=== PATIENT | female | born 1970 | race Caucasian/White ===

== ENCOUNTER 2017-07-19 13:09 | Emergency (ER) | payer OTHER ==
[2017-07-19] MEDS ORDERED: FAMOTIDINE 20 MG TABLET PO ONE (13:28)
[2017-07-19] MEDS ORDERED: DIPHENHYDRAMINE HCL 50 MG CAPSULE PO ONE (13:28)
--- NOTE | 2017-07-19 13:29 | ER Document Report ---
ED General - General Chief Complaint: Facial Swelling Stated Complaint: ALLERGIC REACTION Time Seen by Provider: 07/19/17 13:28 Mode of Arrival: Ambulatory Information source: Patient Notes: 46 yr old female presents with complaints of rash on her face after taking a dose of tolterodine. Pt notes she has had people ask her if she has SLE , and was recently tested. Pt notes the rash is very itchy, was given solumedrol by her pcp and sent into the ED for evaluation pt was recently also placed on amoxicillin for uri/sinusitis TRAVEL OUTSIDE OF THE [place] IN LAST 30 DAYS: No - HPI Onset: Just prior to arrival Onset/Duration: Sudden Quality of pain: No pain Severity: Mild Pain Level: Denies Associated symptoms: Other Exacerbated by: Other Relieved by: Denies Similar symptoms previously: No Recently seen / treated by doctor: Yes - Related Data Allergies/Adverse Reactions: Sulfa (Sulfonamide Antibiotics) Allergy (Verified 10/15/11 23:04) Past Medical History - Social History Smoking Status: Never Smoker Cigarette use (# per day): No Chew tobacco use (# tins/day): No Smoking Education Provided: No Family History: Reviewed & Not Pertinent Patient has suicidal ideation: No Patient has homicidal ideation: No - Past Medical History Cardiac Medical History: Denies: Hx Coronary Artery Disease, Hx Heart Attack, Hx Hypertension Pulmonary Medical History: Reports: Hx Asthma Denies: Hx Bronchitis, Hx COPD, Hx Pneumonia, Hx Tuberculosis Neurological Medical History: Denies: Hx Cerebrovascular Accident, Hx Seizures Renal/ Medical History: Denies: Hx Peritoneal Dialysis GI Medical History: Reports: Hx Gastroesophageal Reflux Disease, Hx Hiatal Hernia Musculoskeltal Medical History: Denies Hx Arthritis Past Surgical History: Reports: Hx Section, Hx Cholecystectomy, Hx Hysterectomy, Hx Tonsillectomy. Denies: Hx Pacemaker - Immunizations Hx Diphtheria, Pertussis, Tetanus Vaccination: No Review of Systems - Review of Systems Notes: REVIEW OF SYSTEMS: CONSTITUTIONAL : Denies fever, chills, or sweats. Denies recent illness. EENT: Denies eye, ear, throat, or mouth pain or symptoms. Denies nasal or sinus congestion or discharge. Denies throat, tongue, or mouth swelling or difficulty swallowing. CARDIOVASCULAR: Denies chest pain. Denies palpitations or racing or irregular heart beat. Denies ankle edema. RESPIRATORY: Denies cough, cold, or chest congestion. Denies shortness of breath, difficulty breathing, or wheezing. GASTROINTESTINAL: Denies abdominal pain or distention. Denies nausea, vomiting , or diarrhea. Denies blood in vomitus, stools, or per rectum. Denies black, tarry stools. Denies constipation. GENITOURINARY: Denies difficulty urinating, painful urination, burning, frequency, blood in urine, or discharge. FEMALE GENITOURINARY: Denies vaginal bleeding, heavy or abnormal periods, irregular periods. Denies vaginal discharge or odor. MUSCULOSKELETAL: Denies back or neck pain or stiffness. Denies joint pain or swelling. SKIN: Admits to facial rash HEMATOLOGIC : Denies easy bruising or bleeding. LYMPHATIC: Denies swollen, enlarged glands. NEUROLOGICAL: Denies confusion or altered mental status. Denies passing out or loss of consciousness. Denies dizziness or lightheadedness. Denies headache. Denies weakness or paralysis or loss of use of either side. Denies problems with gait or speech. Denies sensory loss, numbness, or tingling. Denies seizures. PSYCHIATRIC: Denies anxiety or stress. Denies depression, suicidal ideation, or homicidal ideation. ALL OTHER SYSTEMS REVIEWED AND NEGATIVE. PHYSICAL EXAMINATION: GENERAL: Well-appearing, well-nourished and in no acute distress. HEAD: Atraumatic, normocephalic. EYES: Pupils equal round and reactive to light, extraocular movements intact, conjunctiva are normal. ENT: Nares patent, oropharynx clear without exudates. Moist mucous membranes. NECK: Normal range of motion, supple without lymphadenopathy LUNGS: Breath sounds clear to auscultation bilaterally and equal. No wheezes rales or rhonchi. HEART: Regular rate and rhythm without murmurs ABDOMEN: Soft, nontender, nondistended abdomen. No guarding, no rebound. No masses appreciated. Female : deferred Musculoskeletal: Normal range of motion, no pitting or edema. No cyanosis. NEUROLOGICAL: Cranial nerves grossly intact. Normal speech, normal gait. Normal sensory, motor exams PSYCH: Normal mood, normal affect. SKIN: Rash of face and cheeks, itching Dictation was performed using [employer] voice recognition software Physical Exam - Vital signs Vitals: Temp Pulse Resp BP Pulse Ox 98.7 F 90 18 142/94 H 98 07/19/17 13:11 07/19/17 13:11 07/19/17 13:11 07/19/17 13:11 07/19/17 13:11 Course - Re-evaluation Re-evalutation: 07/19/17 13:32 Tolterodine and Skin rash - from FDA reports Summary Skin rash is found among people who take Tolterodine, especially for people who are female, 60+ old , have been taking the drug for < 1 month, also take medication Celebrex, and have High blood pressure. This review analyzes which people have Skin rash with Tolterodine. It is created by [employer] based on reports of 119 people who have side effects when taking Tolterodine from FDA , and is updated regularly. 07/19/17 14:33 Patient x-ray noted no significant abnormality, patient will be treated for allergic reactions otherwise stable for discharge After performing a Medical Screening Examination, I estimate there is LOW risk for AIRWAY COMPROMISE, ANAPHYLAXIS, CELLULITIS, EPIGLOTTIS, or NECROTIZING FASCIITIS, thus I consider the discharge disposition reasonable. Also, there is no evidence or peritonitis, sepsis, or toxicity. I have reevaluated this patient multiple times and no significant life threatening changes are noted. The patient and I have discussed the diagnosis and risks, and we agree with discharging home with close follow-up with the understanding that symptoms and presentations can change. We also discussed returning to the Emergency Department immediately if new or worsening symptoms occur. We have discussed the symptoms which are most concerning (e.g., difficulty breathing or swallowing , fever, changing or worsening pain) that necessitate immediate return. - Vital Signs Vital signs: Temp Pulse Resp BP Pulse Ox 98.7 F 90 18 142/94 H 98 07/19/17 13:11 07/19/17 13:11 07/19/17 13:11 07/19/17 13:11 07/19/17 13:11 - Diagnostic Test Radiology reviewed: Image reviewed, Reports reviewed - no acute abnormality Discharge - Discharge Clinical Impression: Facial rash Acute allergic reaction Qualifiers: Encounter type: initial encounter Qualified Code(s): T78.40XA - Allergy, unspecified, initial encounter URI (upper respiratory infection) Qualifiers: URI type: unspecified URI Qualified Code(s): J06.9 - Acute upper respiratory infection, unspecified Condition: Stable Disposition: HOME, SELF-CARE Instructions: Upper Respiratory Illness ([facility]), Acute Allergic Reaction ([facility]) Additional Instructions: Please stop taking your medication, return immediately if there are any other concerns Prescriptions: Diphenhydramine HCl [Benadryl 50 mg Capsule] 1 cap PO Q6 PRN #20 capsule PRN Reason: Famotidine [Pepcid 20 mg Tablet] 20 mg PO DAILY #5 tablet Prednisone [Deltasone 20 mg Tablet] 3 tab PO DAILY 5 Days tablet
--- NOTE | 2017-07-19 14:12 | RADIOLOGY REPORT (SQ) ---
EXAM DESCRIPTION: CHEST PA/LAT COMPLETED DATE/TIME: 07/19/2017 1:58 pm REASON FOR STUDY: cough COMPARISON: 10/23/2011 EXAM PARAMETERS: NUMBER OF VIEWS: two views TECHNIQUE: Digital Frontal and Lateral radiographic views of the chest acquired. RADIATION DOSE: NA LIMITATIONS: none FINDINGS: LUNGS AND PLEURA: No opacities, masses or pneumothorax. No pleural effusion. MEDIASTINUM AND HILAR STRUCTURES: No masses or contour abnormalities. HEART AND VASCULAR STRUCTURES: Heart normal size. No evidence for failure. BONES: No acute findings. HARDWARE: None in the chest. OTHER: No other significant finding. IMPRESSION: NO SIGNIFICANT RADIOGRAPHIC FINDING IN THE CHEST. TECHNICAL DOCUMENTATION: JOB ID: [id number] [employer]- All Rights Reserved
[2017-07-19 14:42] VITALS: BP 144/87
--- NOTE | 2017-07-19 14:54 | ER Document Report ---
ED Medical Screen (RME) - General Chief Complaint: Facial Swelling Stated Complaint: ALLERGIC REACTION Time Seen by Provider: 07/19/17 13:28 Mode of Arrival: Ambulatory Information source: Patient Notes: Patient presents with allergic reaction to face TRAVEL OUTSIDE OF THE [place] IN LAST 30 DAYS: No - Related Data Allergies/Adverse Reactions: Sulfa (Sulfonamide Antibiotics) Allergy (Verified 10/15/11 23:04) Past Medical History - Social History Cigarette use (# per day): No Chew tobacco use (# tins/day): No - Past Medical History Cardiac Medical History: Denies: Hx Coronary Artery Disease, Hx Heart Attack, Hx Hypertension Pulmonary Medical History: Reports: Hx Asthma Denies: Hx Bronchitis, Hx COPD, Hx Pneumonia, Hx Tuberculosis Neurological Medical History: Denies: Hx Cerebrovascular Accident, Hx Seizures Renal/ Medical History: Denies: Hx Peritoneal Dialysis GI Medical History: Reports: Hx Gastroesophageal Reflux Disease, Hx Hiatal Hernia Musculoskeltal Medical History: Denies Hx Arthritis Past Surgical History: Reports: Hx Section, Hx Cholecystectomy, Hx Hysterectomy, Hx Tonsillectomy. Denies: Hx Pacemaker - Immunizations Hx Diphtheria, Pertussis, Tetanus Vaccination: No Physical Exam - Vital signs Vitals: Temp Pulse Resp BP Pulse Ox 98.7 F 90 18 142/94 H 98 07/19/17 13:11 07/19/17 13:11 07/19/17 13:11 07/19/17 13:11 07/19/17 13:11 Course - Vital Signs Vital signs: Temp Pulse Resp BP Pulse Ox 98.7 F 87 20 144/87 H 97 07/19/17 13:11 07/19/17 14:38 07/19/17 14:38 07/19/17 14:38 07/19/17 14:38 Doctor's Discharge - Discharge Clinical Impression: Facial rash Acute allergic reaction Qualifiers: Encounter type: initial encounter Qualified Code(s): T78.40XA - Allergy, unspecified, initial encounter URI (upper respiratory infection) Qualifiers: URI type: unspecified URI Qualified Code(s): J06.9 - Acute upper respiratory infection, unspecified Condition: Stable Disposition: HOME, SELF-CARE Instructions: Acute Allergic Reaction ([facility]), Upper Respiratory Illness ([facility]) Additional Instructions: Please stop taking your medication, return immediately if there are any other concerns Prescriptions: Diphenhydramine HCl [Benadryl 50 mg Capsule] 1 cap PO Q6 PRN #20 capsule PRN Reason: Famotidine [Pepcid 20 mg Tablet] 20 mg PO DAILY #5 tablet Prednisone [Deltasone 20 mg Tablet] 3 tab PO DAILY 5 Days tablet
== END 2017-07-19 14:40 | disposition home or self-care (01) ==
LOC: ER 13:09
DX: J06.9 Acute upper respiratory infection, unspecified (principal); T78.40XA Allergy, unspecified, initial encounter; R21 Rash and other nonspecific skin eruption; R22.0 Localized swelling, mass and lump, head
CPT/HCPCS: 71020; 99283

== ENCOUNTER 2017-11-07 12:12 | Emergency (ER) | payer OTHER ==
--- NOTE | 2017-11-07 12:55 | ER Document Report ---
ED ENT - General Chief Complaint: Sore Throat Stated Complaint: POSSIBLE ALLERGIC REACTION Time Seen by Provider: 11/07/17 12:52 Mode of Arrival: Ambulatory Information source: Patient Notes: Patient states she woke up this morning and had a drink and suddenly felt pain in the back of her throat. She states his pain has gotten worse as he is gone throughout the day. She states it is sharp. It is worse with swallowing and better when she does not swallow. There is no radiation of symptoms. They are intermittent. She denies any other significant symptoms. She states she does not believe she ingested anything she might be allergic to. She has had some sinus congestion lately. TRAVEL OUTSIDE OF THE [place] IN LAST 30 DAYS: No - Related Data Allergies/Adverse Reactions: Sulfa (Sulfonamide Antibiotics) Allergy (Verified 10/15/11 23:04) Past Medical History - General Information source: Patient - Social History Smoking Status: Never Smoker Chew tobacco use (# tins/day): No Frequency of alcohol use: None Drug Abuse: None Family History: Reviewed & Not Pertinent Patient has suicidal ideation: No Patient has homicidal ideation: No - Past Medical History Cardiac Medical History: Denies: Hx Coronary Artery Disease, Hx Heart Attack, Hx Hypertension Pulmonary Medical History: Reports: Hx Asthma Denies: Hx Bronchitis, Hx COPD, Hx Pneumonia, Hx Tuberculosis Neurological Medical History: Denies: Hx Cerebrovascular Accident, Hx Seizures Renal/ Medical History: Denies: Hx Peritoneal Dialysis GI Medical History: Reports: Hx Gastroesophageal Reflux Disease, Hx Hiatal Hernia Musculoskeltal Medical History: Denies Hx Arthritis Past Surgical History: Reports: Hx Section, Hx Cholecystectomy, Hx Hysterectomy, Hx Tonsillectomy. Denies: Hx Pacemaker - Immunizations Hx Diphtheria, Pertussis, Tetanus Vaccination: No Review of Systems - Review of Systems Constitutional: denies: Chills, Fever Cardiovascular: denies: Chest pain, Palpitations Gastrointestinal: denies: Abdominal pain, Diarrhea, Vomiting -: Yes All other systems reviewed and negative Physical Exam - Vital signs Vitals: Temp Pulse Resp BP Pulse Ox 98.8 F 68 18 144/89 H 98 11/07/17 12:20 11/07/17 12:20 11/07/17 12:20 11/07/17 12:20 11/07/17 12:20 Interpretation: Normal - General General appearance: Appears well, Alert - HEENT Head: Normocephalic, Atraumatic Eyes: Normal Pupils: PERRL Nasal: Normal Mouth/Lips: Normal Mucous membranes: Moist Pharynx: Erythema, Other - On oral exam I see no evidence of an allergic reaction. There is no buccal mucosal swelling, no tongue swelling, no swelling of the floor the mouth, no posterior pharyngeal or uvular swelling. I also see no lesions.. No: Exudate, Uvular edema, Potential airway comprom. Neck: Normal - Respiratory Respiratory status: No respiratory distress Chest status: Nontender Breath sounds: Normal Chest palpation: Normal - Cardiovascular Rhythm: Regular Heart sounds: Normal auscultation Murmur: No - Abdominal Inspection: Normal Distension: No distension Bowel sounds: Normal Tenderness: Nontender Organomegaly: No organomegaly - Back Back: Normal, Nontender - Extremities General upper extremity: Normal inspection, Nontender, Normal color, Normal ROM , Normal temperature General lower extremity: Normal inspection, Nontender, Normal color, Normal ROM , Normal temperature, Normal weight bearing. No: Valentina's sign - Neurological Neuro grossly intact: Yes Cognition: Normal Orientation: AAOx4 Nimesh Coma Scale Eye Opening: Spontaneous Nimesh Coma Scale Verbal: Oriented [place] Coma Scale Motor: Obeys Commands Nimesh Coma Scale Total: 15 Speech: Normal Motor strength normal: LUE, RUE, LLE, RLE Sensory: Normal - Psychological Associated symptoms: Normal affect, Normal mood - Skin Skin Temperature: Warm Skin Moisture: Dry Skin Color: Normal Course - Vital Signs Vital signs: Temp Pulse Resp BP Pulse Ox 98.8 F 68 18 144/89 H 98 11/07/17 12:20 11/07/17 12:20 11/07/17 12:20 11/07/17 12:20 11/07/17 12:20 - Diagnostic Test Radiology reviewed: Image reviewed, Reports reviewed - Patient soft tissue neck x-ray is unremarkable. Discharge - Discharge Clinical Impression: Pharyngitis Qualifiers: Pharyngitis/tonsillitis etiology: other specified organisms Qualified Code(s): J02.8 - Acute pharyngitis due to other specified organisms Condition: Stable Disposition: HOME, SELF-CARE Instructions: Sore Throat ([facility]) Additional Instructions: Please call your family physician as soon as possible to arrange for follow-up. Forms: Return to Work
--- NOTE | 2017-11-07 13:29 | RADIOLOGY REPORT (SQ) ---
EXAM DESCRIPTION: SOFT TISSUE NECK COMPLETED DATE/TIME: 11/07/2017 1:19 pm REASON FOR STUDY: painful swallowing COMPARISON: None. NUMBER OF VIEWS: Two views. TECHNIQUE: AP and lateral radiographic image of the soft tissues of the neck. LIMITATIONS: None. FINDINGS: EPIGLOTTIS: Normal. Contour normal. Aryepiglottic folds normal. PREVERTEBRAL SOFT TISSUES: Normal. No soft tissue swelling. SUBGLOTTIC AREA: Normal. No narrowing. RETROPHARYNGEAL SPACE: Normal. No soft tissue masses. BONES: No significant findings. LUNG APICES: Normal. OTHER: No radiopaque foreign body. No other significant finding. IMPRESSION: NEGATIVE STUDY OF THE SOFT TISSUES OF THE NECK. TECHNICAL DOCUMENTATION: JOB ID: [id number] [employer]- All Rights Reserved
[2017-11-07] MEDS ORDERED: MAG HYDROX/AL HYDROX/SIMETH SUSP 30 ML UDCUP PO PRN (13:39)
[2017-11-07 14:01] VITALS: BP 151/88
== END 2017-11-07 13:57 | disposition home or self-care (01) ==
LOC: ER 12:12
DX: J02.9 Acute pharyngitis, unspecified (principal); R09.81 Nasal congestion; Z88.2 Allergy status to sulfonamides; Z90.89 Acquired absence of other organs
CPT/HCPCS: 70360; 99283

== ENCOUNTER 2019-10-02 10:35 | Inpatient (IN) | payer OTHER ==
[2019-10-02] MEDS ORDERED: FENTANYL CITRATE INJ/PF 100 MCG/2 ML AMPUL IV ONE ×2 (10:55→13:30)
[2019-10-02] MEDS ORDERED: ONDANSETRON HCL INJ/PF 4 MG/2 ML SDV IV ONE (10:55)
--- NOTE | 2019-10-02 12:07 | RADIOLOGY REPORT (SQ) ---
EXAM DESCRIPTION: ANKLE RIGHT COMPLETE COMPLETED DATE/TIME: 10/02/2019 11:55 am REASON FOR STUDY: +deformity, bone tenderness COMPARISON: None. NUMBER OF VIEWS: Three views. TECHNIQUE: AP, lateral, and oblique radiographic images acquired of the right ankle. LIMITATIONS: None. FINDINGS: MINERALIZATION: Normal. BONES: Comminuted fracture of the distal fibula through the syndesmosis. Fracture of the posterior m alleolus with posterior dislocation. talar dome appears intact. JOINTS: See above. SOFT TISSUES: No foreign body. OTHER: No other significant finding. IMPRESSION: Fracture dislocation of the ankle. TECHNICAL DOCUMENTATION: JOB ID: [id number] [employer].- All Rights Reserved Reading location - IP/workstation name: [email or web address]
--- NOTE | 2019-10-02 12:38 | ER Document Report ---
Entered by PREMA WALSH SCRIBE 10/02/19 1054 Acting as scribe for:SETH HURT MD ED Extremity Problem, Lower - General Chief Complaint: Ankle Injury Stated Complaint: RIGHT ANKLE INJURY Time Seen by Provider: 10/02/19 10:49 Primary Care Provider: RODRIGO MAYER MD [NO LOCAL MD] - Follow up as needed Mode of Arrival: Medic Information source: Patient Notes: 49-year-old female who presents to the emergency department today with complaints of right ankle pain with an associated deformity. Patient states she works at [employer] and she "decided to break out her roller states" despite not having skated in "decades". Patient states that they "strongly advised against it but she wanted to try to anyways". 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 Patient has good sensation and pulses distally. TRAVEL OUTSIDE OF THE [place] IN LAST 30 DAYS: No - HPI Patient complains to provider of: Injury, Pain, Swelling Location: Ankle - right Occurred: Just prior to arrival Where: Work - [employer] - Related Data Allergies/Adverse Reactions: Sulfa (Sulfonamide Antibiotics) Allergy (Verified 10/15/11 23:04) Home Medications: pantoprazole, peroxetine, Past Medical History - General Information source: Patient - Social History Smoking Status: Never Smoker Cigarette use (# per day): No Chew tobacco use (# tins/day): No Frequency of alcohol use: Occasional Drug Abuse: None Occupation: [employer], [employer] Lives with: Family Family History: Reviewed & Not Pertinent Patient has suicidal ideation: No Patient has homicidal ideation: No Pulmonary Medical History: Reports: Hx Asthma GI Medical History: Reports: Hx Gastroesophageal Reflux Disease, Hx Hiatal Hernia Past Surgical History: Reports: Hx Section, Hx Cholecystectomy, Hx Hysterectomy, Hx Tonsillectomy - Immunizations Hx Diphtheria, Pertussis, Tetanus Vaccination: No Review of Systems - Review of Systems Constitutional: No symptoms reported EENT: No symptoms reported Cardiovascular: No symptoms reported Respiratory: No symptoms reported Gastrointestinal: No symptoms reported Genitourinary: No symptoms reported Female Genitourinary: No symptoms reported Musculoskeletal: See HPI, Joint pain - right ankle, Deformity - right ankle Skin: No symptoms reported Hematologic/Lymphatic: No symptoms reported Neurological/Psychological: No symptoms reported -: Yes All other systems reviewed and negative Physical Exam - Vital signs Vitals: Temp 97.4 F 10/02/19 10:43 - Notes Notes: Physical Exam: General: Alert, appears uncomfortable. HEENT: Normocephalic. Atraumatic. PERRL. Extraocular movements intact. Oropharynx clear. Neck: Supple. Non-tender. Respiratory: No respiratory distress. Clear and equal breath sounds bilaterally. Cardiovascular: Regular rate and rhythm. Abdominal: Obese. Non-tender. No distension. Normal Bowel Sounds. Back: No gross abnormalities. Extremities: Moves all four extremities. Upper extremities: Normal inspection. Normal ROM. Lower extremities: Obvious deformity with associated tenderness to palpation of the right ankle. 2+ pulses distally. Sensation intact distally. Brisk capillary refill. Neurological: Normal cognition. AAOx4. Normal speech. Psychological: Normal affect. Normal Mood. Skin: Warm. Dry. Normal color. Course - Vital Signs Vital signs: Temp Pulse Resp BP Pulse Ox 97.4 F 17 120/72 100 10/02/19 10:43 10/02/19 14:52 10/02/19 14:52 10/02/19 14:52 - Diagnostic Test Radiology reviewed: Image reviewed, Reports reviewed - Right ankle shows comminuted fractures of the lateral and posterior malleoli with posterior displacement of the talar dome - Consults Dr. Barahona Consulted provider: will come to ER Procedures - Joint Reduction/Fracture Care Right Ankle Consent obtained: Yes Conscious sedation: No Pre-procedure NV exam: Yes Fracture: Closed Post-procedure NV exam: Yes Post-reduction x-ray: Joint not reduced - Joint is partially reduced. Reduction attempts: 1 Complications: No Notes: 10/02/19 15:[address] Barahona. He plans to take the patient to the operating room tomorrow morning. He will see her on the floor and decide if he wants to attempt to further reduce the ankle. Discharge - Discharge Clinical Impression: Closed fracture dislocation of right ankle Qualifiers: Encounter type: initial encounter Qualified Code(s): S82.891A - Other fracture of right lower leg, initial encounter for closed fracture Condition: Stable Disposition: ADMITTED INPATIENT Admitting Provider: Dr. Barahona Unit Admitted: Surgical Floor Referrals: RODRIGO MAYER MD [NO LOCAL MD] - Follow up as needed Scribe Attestation: 10/02/19 13:48 I personally performed the services described in the documentation, reviewed and edited the documentation which was dictated to the scribe in my presence, and it accurately records my words and actions. I personally performed the services described in the documentation, reviewed and edited the documentation which was dictated to the scribe in my presence, and it accurately records my words and actions.
[2019-10-02] MEDS ORDERED: ONDANSETRON 4 MG TAB.RAPDIS PO ONE (13:10)
[2019-10-02] MEDS ORDERED: FENTANYL CITRATE INJ/PF 250 MCG/5 ML AMPULE IV ONE (13:13)
--- NOTE | 2019-10-02 15:25 | RADIOLOGY REPORT (SQ) ---
EXAM DESCRIPTION: ANKLE RIGHT AP/LATERAL COMPLETED DATE/TIME: 10/02/2019 2:50 pm REASON FOR STUDY: Postreduction COMPARISON: Earlier same day. NUMBER OF VIEWS: Two views. TECHNIQUE: AP and lateral radiographic images acquired of the right ankle. LIMITATIONS: None. FINDINGS: Improved alignment of the distal fibular fracture status post external cast placement. Im proved alignment of the ankle dislocation. IMPRESSION: Successful closed reduction. TECHNICAL DOCUMENTATION: JOB ID: [id number] [employer]- All Rights Reserved Reading location - IP/workstation name: [email or web address]
[2019-10-02] MEDS ORDERED: MORPHINE SULFATE 10 MG/ML INJ IV PRN (19:23)
[2019-10-02 19:39] LABS: ABSOLUTE EOSINOPHILS # (AUTO) 0.1 10^3/uL (0.0-0.6); ABSOLUTE LYMPHOCYTES (AUTO) 1.6 10^3/uL (0.5-4.7); ABSOLUTE MONOCYTES (AUTO) 0.4 10^3/uL (0.1-1.4); ABSOLUTE NEUT (AUTO) 2.7 10^3/uL (1.7-8.2); BASOPHILS % (AUTO) 0.8 % (0-2); EOSINOPHILS % (AUTO) 2.4 % (0-6); HEMATOCRIT 43.4 % (36.0-47.0); HEMOGLOBIN 14.5 g/dL (12.0-15.5); LYMPHOCYTES % (AUTO) 33.5 % (13-45); MEAN CORPUSCULAR HEMOGLOBIN 29.9 pg (27.0-33.4); MEAN CORPUSCULAR HGB CONC 33.4 g/dL (32.0-36.0); MEAN CORPUSCULAR VOLUME 89 fl (80-97); MONOCYTES % (AUTO) 7.4 % (3-13); PLATELET COUNT 153 10^3/uL (150-450); RED BLOOD COUNT 4.85 10^6/uL (3.72-5.28); RED CELL DISTRIBUTION WIDTH 12.9 % (11.5-14.0); SEGMENTED NEUTROPHILS % (AUTO) 55.9 % (42-78); TOTAL CELLS COUNTED % (AUTO) 100 %; WHITE BLOOD COUNT 4.8 10^3/uL (4.0-10.5)
[2019-10-02] MEDS ORDERED: LIDOCAINE 1% INJ (10 MG/ML) 10 ML MDV INJ ONE (19:55)
[2019-10-02] MEDS: ACETAMINOPHEN 325 MG TABLET PO SCH (20:05)
[2019-10-02 20:10] LABS: ANION GAP 7 (5-19); BLOOD UREA NITROGEN 12 mg/dL (7-20); CALCIUM 9.5 mg/dL (8.4-10.2); CARBON DIOXIDE 27 mmol/L (22-30); CHLORIDE 107 mmol/L (98-107); GLUCOSE 101 mg/dL (75-110); POTASSIUM 3.9 mmol/L (3.6-5.0)
--- NOTE | 2019-10-02 20:37 | PDOC H&P ---
History of Present Illness Admission Date/PCP: 10/02/19 16:00 [facility] History of Present Illness: SAIRA LEWIS is a 49 year old female Who works at [employer], and was attempting to roller skate for her job in the back parking lot when she fell and rolled her ankle. Subsequently she could not get up and she had an ankle deformity. She was brought to the hospital and found to have a posterior malleolus fracture dislocation of the tibiotalar joint with a associated lateral malleolus fracture. And significant widening of the medial clear space. The emergency department attempted a reduction but were unable to obtain stable reduction in a splint. Post reduction x-rays revealed a consistent dislocation posteriorly. I presented for re-reduction and consideration of operative planning. Patient denies any other injury associated with her fall she denies associated limb pain head injury or loss of consciousness. There is no distal paresthesias her pain is located to the ankle and the skin is intact. Pain is a 5 out of 10 at rest worse with motion improved with pain medication. Nonradiating. Past Medical History Past Medical History: Past medical history includes anxiety depression and asthma Cardiac Medical History: Denies: Coronary Artery Disease, Myocardial Infarction, Hypertension Pulmonary Medical History: Reports: Asthma Denies: Bronchitis, Chronic Obstructive Pulmonary Disease (COPD), Pneumonia, Tuberculosis Neurological Medical History: Denies: Seizures GI Medical History: Reports: Gastroesophageal Reflux Disease, Hiatal Hernia Musculoskeltal Medical History: Denies: Arthritis Hematology: Denies: Anemia Past Surgical History Past Surgical History: Reports: Section, Cholecystectomy, Hysterectomy, Tonsillectomy Denies: Pacemaker Social History Lives with: Family Smoking Status: Never Smoker Electronic Cigarette use?: No Hx Recreational Drug Use: No Hx Prescription Drug Abuse: No Family History Family History: Reviewed & Not Pertinent Parental Family History Reviewed: Yes Children Family History Reviewed: No Sibling(s) Family History Reviewed.: No Medication/Allergy Home Medications: Multivitamin [Tab-A-Turner (Multiple Vitamin) Tablet] 1 tab PO DAILY 10/02/19 Pantoprazole Sodium [Protonix [address] Tablet] 40 mg PO Q6AM 10/02/19 Paroxetine HCl [Paxil 20 mg Tablet] 10 mg PO DAILY 10/02/19 Allergies/Adverse Reactions: Sulfa (Sulfonamide Antibiotics) Allergy (Verified 10/15/11 23:04) Physical Exam Vital Signs: Temp Pulse Resp BP Pulse Ox 97.4 F 14 125/71 100 10/02/19 10:43 10/02/19 20:17 10/02/19 20:17 10/02/19 20:17 Intake & Output 10/01/19 10/02/19 10/03/19 06:59 06:59 06:59 Intake Total 360 Balance 360 Weight 124.738 kg Physical Exam: General appearance: PRESENT: no acute distress, cooperative, well-nourished, Morbid obesity Head exam: PRESENT: atraumatic, normocephalic Eye exam: PRESENT: EOMI Ear exam: PRESENT: normal external ear exam Mouth exam: PRESENT: neck supple Neck exam: ABSENT: tracheal deviation Respiratory exam: PRESENT: symmetrical, unlabored. ABSENT: accessory muscle use, wheezes Pulses: PRESENT: normal radial pulses, normal dorsalis pedis pul Vascular exam: PRESENT: normal capillary refill GI/Abdominal exam: ABSENT: distended, firm Extremities exam: PRESENT: full ROM of bilateral shoulders, elbows wrists, knees, hips and ankles without pain Musculoskeletal exam: PRESENT: full ROM, normal inspection Neurological exam: PRESENT: alert, awake, oriented to person, oriented to place, oriented to time Psychiatric exam: PRESENT: appropriate affect. ABSENT: agitated Focused psych exam: ABSENT: catatonic Skin exam: PRESENT: intact. ABSENT: dry All as above aside from that noted in the HPI and the following: Right lower extremity with obvious deformity external rotation of the ankle and posterior translation. Skin is intact without any signs of skin tenting. Distal sensation is grossly intact there is no paresthesia. Motor function to EHL FHL and EDB is present. Compartments are soft. Pulses are 2+. Results Laboratory Results: 10/02/19 11:03 10/02/19 11:03 10/02/19 10/02/19 11:03 11:03 WBC 4.8 RBC 4.85 Hgb 14.5 Hct 43.4 MCV 89 MCH 29.9 MCHC 33.4 RDW 12.9 Plt Count 153 Seg Neutrophils % 55.9 Sodium 141.1 Potassium 3.9 Chloride 107 Carbon Dioxide 27 Anion Gap 7 BUN 12 Creatinine 0.77 Est GFR ( Amer) > 60 Glucose 101 Calcium 9.5 Impressions: Ankle X-Ray 10/02/19 14:08 IMPRESSION: Successful closed reduction. Assessment & Plan - Diagnosis (1) Closed fracture dislocation of right ankle Qualifiers: Encounter type: initial encounter Qualified Code(s): S82.891A - Other fracture of right lower leg, initial encounter for closed fracture Plan: After discussing risks and benefits the patient underwent a second closed reduction in the emergency department under a local fracture hematoma block. -We will plan for operative fixation tomorrow. -Medical consult pending. -N.p.o. at midnight. -Nonweightbearing right lower extremity. -We will place her on aspirin postoperatively for DVT prophylaxis until that time hold all chemical anticoagulation. -Postreduction x-rays pending -We will order CT for further evaluation and operative management -Ancef 3 g to be given preoperative -Pain control multimodal
--- NOTE | 2019-10-02 20:40 | Operative Report ---
Operative Report DATE OF SURGERY: 10/02/19 PREOPERATIVE DIAGNOSIS: Right trimalleolar equivalent ankle fracture dislocation POSTOPERATIVE DIAGNOSIS: Right trimalleolar equivalent ankle fracture dislocation OPERATION: Closed reduction right trimalleolar ankle fracture SURGEON: MARINA MCKEON JR ANESTHESIA: Local COMPLICATIONS: none PROCEDURE: I discussed risks and benefits with the patient including all alternative treatments. After all questions were answered and all risks and benefits explained the patient provided verbal consent for closed reduction under local anesthesia. The site was clean with alcohol wipes and 10 cc of 1% lidocaine were given to the hematoma. After adequate anesthesia reduction maneuver was performed and a subsequent splint was placed. The patient tolerated the procedure well. We will plan for operative fixation tomorrow.
--- NOTE | 2019-10-02 21:33 | RADIOLOGY REPORT (SQ) ---
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 COMPARISON: Radiographs from earlier the same day. TECHNIQUE: CT scan of the right ankle without IV contrast. This exam was performed according to our departmental dose-optimization program, which includes automated exposure control, adjustment of the mA and/or kV according to patient size and/or use of iterative reconstruction technique. FINDINGS: There are mildly displaced and comminuted fractures of the lateral malleolus and posterior malleolus. Small fracture fragments are seen just below the medial malleolus. There is medial tibiotalar subluxation with disruption of the ankle mortise. The talar dome is intact. The subtalar joints are preserved. Diffuse soft tissue swelling of the ankle. No radiopaque foreign body. The medial flexor tendons, into close contact with the fracture fragments without evidence of entrapment. IMPRESSION: 1. Mildly displaced and comminuted fractures of the lateral and posterior malleoli. 2. Ankle mortise disruption with medial tibiotalar subluxation. 3. Tiny ossific fragments in the region of the deltoid ligament.
[2019-10-02] MEDS: OXYCODONE-ACETAMINOPHEN 5-325 MG TABLET PO PRN (22:23)
[2019-10-02] MEDS: ZOLPIDEM TARTRATE 5 MG TABLET PO SCH (22:23)
[2019-10-03] MEDS: ACETAMINOPHEN 325 MG TABLET PO SCH ×3 (05:33→21:53)
[2019-10-03] MEDS: PANTOPRAZOLE SODIUM 40 MG TABLET.DR PO SCH (05:34)
[2019-10-03] MEDS ORDERED: FENTANYL CITRATE INJ/PF 100 MCG/2 ML AMPUL ONE (08:42)
[2019-10-03] MEDS ORDERED: ONDANSETRON HCL INJ/PF 4 MG/2 ML SDV ONE (08:43)
[2019-10-03] MEDS ORDERED: DEXAMETHASONE SOD PHOSPHATE INJ 4 MG/1 ML VIAL ONE (08:43)
[2019-10-03] MEDS ORDERED: PROPOFOL INJ 200 MG/20 ML VIAL IV ONE (08:43)
[2019-10-03] MEDS ORDERED: MIDAZOLAM 2 MG/2 ML INJ ONE (08:43)
[2019-10-03] MEDS ORDERED: MORPHINE SULFATE 10 MG/ML INJ ONE (08:43)
[2019-10-03] MEDS ORDERED: EPINEPHRINE INJ/PF 1 MG/1 ML AMPULE ONE (09:19)
[2019-10-03] MEDS ORDERED: CEFAZOLIN INJ 1 GM VIAL ONE (09:19)
[2019-10-03] MEDS: BUPIVACAINE HCL 0.5 % INJ/PF 30 ML SDV ONE ×2 (10:16→11:55)
[2019-10-03] MEDS: LIDOCAINE 1% INJ-PF (10 MG/ML) 30 ML SDV ONE ×2 (10:16→11:55)
[2019-10-03] MEDS ORDERED: MORPHINE SULFATE 10 MG/ML INJ IV PRN (10:31)
[2019-10-03] MEDS ORDERED: PROMETHAZINE HCL INJ 25 MG/1 ML VIAL IV PRN ×2 (10:31)
[2019-10-03] MEDS ORDERED: FENTANYL CITRATE INJ/PF 100 MCG/2 ML AMPUL IV PRN ×3 (10:31)
[2019-10-03] MEDS ORDERED: DIPHENHYDRAMINE HCL 50 MG/ML VIAL IV PRN (10:31)
--- NOTE | 2019-10-03 13:01 | RADIOLOGY REPORT (SQ) ---
EXAM DESCRIPTION: ANKLE RIGHT COMPLETE COMPLETED DATE/TIME: 10/03/2019 12:50 pm REASON FOR STUDY: Post op COMPARISON: 10/02/2019 NUMBER OF VIEWS: Three views. TECHNIQUE: AP, lateral, and oblique radiographic images acquired of the right ankle. LIMITATIONS: None. FINDINGS: Postsurgical changes are present. There has been internal fixation of the distal fibula a nd distal tibia. Fiberglass cast is in place. Good anatomic alignment. IMPRESSION: Satisfactory postoperative right ankle as described. TECHNICAL DOCUMENTATION: JOB ID: [id number] [employer]- All Rights Reserved Reading location - IP/workstation name: [email or web address]
--- NOTE | 2019-10-03 13:45 | Operative Report ---
Operative Report DATE OF SURGERY: 10/03/19 PREOPERATIVE DIAGNOSIS: Right ankle trimalleolar fracture equivalent POSTOPERATIVE DIAGNOSIS: Right ankle trimalleolar fracture equivalent OPERATION: Right ankle open reduction internal fixation SURGEON: MARINA MCKEON JR ANESTHESIA: Spinal COMPLICATIONS: none ESTIMATED BLOOD LOSS: 20 cc PROCEDURE: The patient is a 49-year-old female who initially presented to the emergency after trying to skate at her job at [employer]. An attempt was made at reduction by the ER which was not adequate and subsequently, I attempted reduction a second time. She was found to be grossly unstable. Subsequent XR found her to be subluxed in her splint even after the second attempt. After discussing risks benefits and treatment alternatives and answering all questions the patient provided operative consent for her left ankle. She was brought to the operating suite and placed under spinal anesthesia. Her splint was removed and skin was confirmed to be intact and was healthy for operative treatment. She was placed in the lateral position. She was prepped and draped in standard sterile fashion. She was provided with 2 g of Ancef pre- operatively. After an appropriate timeout the limb was exsanguinated with Esmarch and tourniquet was inflated followed by a postero-lateral incision to the lateral malleolus. We utilized a window about the peroneal tendons to access the posterior malleolus. Through direct reduction techniques and with the assistance of richard, we placed reduction screws and k-wires and then applied a small anti-glide plate with a combination of locking and nonlocking screws. After this we turned our attention to the lateral malleolus. We were able to reduce and hold with a lobster bone clamp and then place a lag screw by technique. We then applied a plate to the posterior aspect and placed a neutralization plate with screws that had excellent purchase. Following this, a cotton test was performed and found the syndesmosis to be stable. However, the deltoid ligament was grossly unstable and she was still able to sublux medially. The decision was made to close and proceed with immobilization to allow the medial soft tissue to heal. Then final x-rays were taken. The wounds were copiously irrigated with sterile saline solution. Following this a interrupted 2-0 Vicryl was used subcutaneously followed by a running mattress type II 0 nylon in the skin. Xeroform was placed over the wounds followed by 4 x 4's soft roll splint and Brian wrap. The patient tolerated the procedure well and was transferred to the PACU in stable condition.
--- NOTE | 2019-10-03 14:24 | RADIOLOGY REPORT (SQ) ---
EXAM DESCRIPTION: ANKLE RIGHT AP/LATERAL; NO CHG FLUORO COMPLETED DATE/TIME: 10/03/2019 2:13 pm REASON FOR STUDY: ORIF RIGHT ANKLE ASST WITH FLUORO IN OR COMPARISON: 10/02/2019 FLUOROSCOPY TIME: 0.4 minutes Spot images saved to PACS. TECHNIQUE: Intra-operative images acquired during surgical procedure to evaluate progress. NUMBER OF IMAGES: 4 LIMITATIONS: None. FINDINGS: Fluoroscopy was provided for intraoperative procedure. Please refer to the operative repo rt for further discussion. IMPRESSION: IMAGE(S) OBTAINED DURING PROCEDURE. COMMENT: Quality ID [id number]: Final reports for procedures using fluoroscopy that document radiation exp osure indices, or exposure time and number of fluorographic images (if radiation exposure indices are not available) Please consult full operative report of the attending physician for description of the procedure. TECHNICAL DOCUMENTATION: JOB ID: [id number] [employer]- All Rights Reserved Reading location - IP/workstation name: [email or web address]
--- NOTE | 2019-10-03 14:24 | RADIOLOGY REPORT (SQ) ---
EXAM DESCRIPTION: ANKLE RIGHT AP/LATERAL; NO CHG FLUORO COMPLETED DATE/TIME: 10/03/2019 2:13 pm REASON FOR STUDY: ORIF RIGHT ANKLE ASST WITH FLUORO IN OR COMPARISON: 10/02/2019 FLUOROSCOPY TIME: 0.4 minutes Spot images saved to PACS. TECHNIQUE: Intra-operative images acquired during surgical procedure to evaluate progress. NUMBER OF IMAGES: 4 LIMITATIONS: None. FINDINGS: Fluoroscopy was provided for intraoperative procedure. Please refer to the operative repo rt for further discussion. IMPRESSION: IMAGE(S) OBTAINED DURING PROCEDURE. COMMENT: Quality ID [id number]: Final reports for procedures using fluoroscopy that document radiation exp osure indices, or exposure time and number of fluorographic images (if radiation exposure indices are not available) Please consult full operative report of the attending physician for description of the procedure. TECHNICAL DOCUMENTATION: JOB ID: [id number] [employer]- All Rights Reserved Reading location - IP/workstation name: [email or web address]
[2019-10-03] MEDS: MULTIVITAMIN TABLET PO SCH (14:30)
[2019-10-03] MEDS: DOCUSATE SODIUM 100 MG CAPSULE PO SCH ×2 (14:32→22:58)
[2019-10-03] MEDS: PAROXETINE HCL 20 MG TABLET PO SCH (14:33)
[2019-10-03] MEDS ORDERED: IPRATROPIUM/ALBUTEROL 0.5-2.5 MG/3 ML AMPUL NEB PRN (15:59)
--- NOTE | 2019-10-03 15:59 | PDOC CONSULTATION ---
Consultation Consult Date: 10/03/19 Attending physician:: MARINA MCKEON JR Provider Consulted: BRYAN HAAS Consult reason:: Medical Managment. History of Present Illness Admission Date/PCP: 10/02/19 16:00 [facility] History of Present Illness: SAIRA LEWIS is a 49 year old female past medical history of all asthma, obesity, GERD, who was admitted by orthopedic surgery for tramatic dislocation of tibiotalar joint with associated lateral malleolar fracture after a fall. Patient is status post surgery. On my encounter patient is comfortably sitting in bed enjoying her lunch stating that she does not feel much pain in the right foot as she is just finished out of surgery and the effect of anesthesia has not worn off. Denies any fever, chills, nausea, vomiting, diarrhea, constipation or any urinary symptoms. Hospitalist consulted for medical management. Past Medical History Cardiac Medical History: Denies: Coronary Artery Disease, Myocardial Infarction, Hypertension Pulmonary Medical History: Reports: Asthma Denies: Bronchitis, Chronic Obstructive Pulmonary Disease (COPD), Pneumonia, Tuberculosis Neurological Medical History: Denies: Seizures GI Medical History: Reports: Gastroesophageal Reflux Disease, Hiatal Hernia Musculoskeltal Medical History: Denies: Arthritis Psychiatric Medical History: Denies: Depression Hematology: Denies: Anemia Past Surgical History Past Surgical History: Reports: Section, Cholecystectomy, Hysterectomy, Tonsillectomy Denies: Pacemaker Social History Lives with: Family Smoking Status: Never Smoker Electronic Cigarette use?: No Frequency of Alcohol Use: None Hx Recreational Drug Use: No Hx Prescription Drug Abuse: No - Advance Directive Resuscitation Status: Full Code Family History Family History: Reviewed & Not Pertinent Parental Family History Reviewed: Yes Children Family History Reviewed: Yes Sibling(s) Family History Reviewed.: Yes Medication/Allergy Home Medications: Multivitamin [Tab-A-Turner (Multiple Vitamin) Tablet] 1 tab PO DAILY 10/02/19 Pantoprazole Sodium [Protonix [address] Tablet] 40 mg PO Q6AM 10/02/19 Paroxetine HCl [Paxil 20 mg Tablet] 10 mg PO DAILY 10/02/19 Acetaminophen [Tylenol 325 mg Tablet] 650 mg PO Q8 tablet 10/03/19 Aspirin [Aspirin 325 mg Tablet] 325 mg PO DAILY 42 Days #42 tablet 10/03/19 Diphenhydramine HCl [Benadryl Inj 50 mg/1 ml Vial] 12.5 mg IV .WHILE IN PACU PRN vial 10/03/19 Docusate Sodium [Colace 100 mg Capsule] 100 mg PO BID capsule 10/03/19 Multivitamin [Tab-A-Turner (Multiple Vitamin) Tablet] 1 tab PO DAILY tablet 10/03/19 Oxycodone HCl/Acetaminophen [Percocet 5-325 mg Tablet] 1 tab PO Q4HP PRN 10 Days #20 tablet 10/03/19 Allergies/Adverse Reactions: Sulfa (Sulfonamide Antibiotics) Allergy (Verified 10/15/11 23:04) Review of Systems Review of Systems: as per hpi Physical Exam Vital Signs: Temp Pulse Resp BP Pulse Ox 97.6 F 55 L 17 117/64 99 10/03/19 14:22 10/03/19 14:22 10/03/19 14:22 10/03/19 14:22 10/03/19 14:22 Intake & Output 10/02/19 10/03/19 10/04/19 06:59 06:59 06:59 Intake Total 596 1000 Output Total 0 40 Balance 596 960 Weight 124.738 kg General appearance: PRESENT: morbidly obese Head exam: PRESENT: atraumatic, normocephalic Respiratory exam: PRESENT: clear to auscultation emperatriz. ABSENT: rales, rhonchi, wheezes Cardiovascular exam: PRESENT: RRR. ABSENT: diastolic murmur, rubs, systolic murmur GI/Abdominal exam: PRESENT: normal bowel sounds, soft. ABSENT: distended, guarding, mass, organolmegaly, rebound, tenderness Neurological exam: PRESENT: alert, awake, oriented to person, oriented to place, oriented to time, oriented to situation, CN II-XII grossly intact. ABSENT: motor sensory deficit Results Laboratory Results: 10/02/19 11:03 10/02/19 11:03 10/02/19 10/02/19 11:03 11:03 WBC 4.8 RBC 4.85 Hgb 14.5 Hct 43.4 MCV 89 MCH 29.9 MCHC 33.4 RDW 12.9 Plt Count 153 Seg Neutrophils % 55.9 Sodium 141.1 Potassium 3.9 Chloride 107 Carbon Dioxide 27 Anion Gap 7 BUN 12 Creatinine 0.77 Est GFR ( Amer) > 60 Glucose 101 Calcium 9.5 Impressions: Lower Extremity CT 10/02/19 00:00 IMPRESSION: 1. Mildly displaced and comminuted fractures of the lateral and posterior malleoli. 2. Ankle mortise disruption with medial tibiotalar subluxation. 3. Tiny ossific fragments in the region of the deltoid ligament. Ankle X-Ray 10/03/19 00:00 IMPRESSION: IMAGE(S) OBTAINED DURING PROCEDURE. Fluoroscopy 10/03/19 00:00 IMPRESSION: IMAGE(S) OBTAINED DURING PROCEDURE. Assessment and Plan - Diagnosis (1) Morbid obesity with BMI of 40.0-44.9, adult Is this a current diagnosis for this admission?: Yes Plan: Lifestyle modification recommended. Pending TSH, A1c and lipid panel. (2) Asthma Qualifiers: Asthma severity: mild Asthma persistence: intermittent Asthma complication type: uncomplicated Qualified Code(s): J45.20 - Mild intermittent asthma, uncomplicated Is this a current diagnosis for this admission?: Yes Plan: History of asthma. Denies any history of intubation or hospitalization for asthma attack. Takes albuterol inhaler as needed. (3) Closed fracture dislocation of right ankle Qualifiers: Encounter type: initial encounter Qualified Code(s): S82.891A - Other fracture of right lower leg, initial encounter for closed fracture Is this a current diagnosis for this admission?: Yes Plan: Status post surgery. Management as per orthopedic team.
[2019-10-03] MEDS ORDERED: HYDRALAZINE HCL INJ/PF 20 MG/1 ML SDV IV PRN (16:00)
[2019-10-03] MEDS: OXYCODONE-ACETAMINOPHEN 5-325 MG TABLET PO PRN ×2 (19:04→22:59)
[2019-10-03] MEDS: MORPHINE SULFATE 10 MG/ML INJ IV PRN (20:45)
[2019-10-03] MEDS: ZOLPIDEM TARTRATE 5 MG TABLET PO SCH (21:53)
[2019-10-04] MEDS: OXYCODONE-ACETAMINOPHEN 5-325 MG TABLET PO PRN ×3 (03:33→12:14)
[2019-10-04 05:35] LABS: CHOLESTEROL 165.81 mg/dL (0-200); TRIGLYCERIDES 63 mg/dL (<150)
[2019-10-04 05:46] LABS: DIRECT LDL 101 mg/dL (<100)
[2019-10-04 05:50] LABS: FREE T3 2.27 pg/mL (2.77-5.27); FREE T4 (FREE THYROXINE) 1.1 ng/dL (0.78-2.19)
[2019-10-04] MEDS: PANTOPRAZOLE SODIUM 40 MG TABLET.DR PO SCH (06:39)
[2019-10-04] MEDS: ACETAMINOPHEN 325 MG TABLET PO SCH (06:39)
[2019-10-04] MEDS: MORPHINE SULFATE 10 MG/ML INJ IV PRN (06:44)
--- NOTE | 2019-10-04 07:31 | PDOC PROGRESS REPORT ---
Subjective Progress Note for:: 10/04/19 Subjective:: Patient does report pain this morning but I explained to her that this is normal. Is not out of proportion. Currently well managed with pain medication. Reason For Visit: RIGHT TRIMALLEOLAR ANKLE FRACTURE EQUIVALENT Physical Exam Vital Signs: Temp Pulse Resp BP Pulse Ox 98.2 F 65 17 115/65 100 10/04/19 00:18 10/04/19 00:18 10/04/19 00:18 10/04/19 00:18 10/04/19 00:18 Intake & Output 10/03/19 10/04/19 10/05/19 06:59 06:59 06:59 Intake Total 596 1000 Output Total 0 40 Balance 596 960 Weight 124.738 kg 127.8 kg Physical Exam: General appearance: PRESENT: no acute distress, cooperative, well-nourished, Morbid obesity Head exam: PRESENT: atraumatic, normocephalic Eye exam: PRESENT: EOMI Ear exam: PRESENT: normal external ear exam Mouth exam: PRESENT: neck supple Neck exam: ABSENT: tracheal deviation Respiratory exam: PRESENT: symmetrical, unlabored. ABSENT: accessory muscle use, wheezes Pulses: PRESENT: normal radial pulses, normal dorsalis pedis pul Vascular exam: PRESENT: normal capillary refill GI/Abdominal exam: ABSENT: distended, firm Extremities exam: PRESENT: full ROM of bilateral shoulders, elbows wrists, knees, hips and ankles without pain Musculoskeletal exam: PRESENT: full ROM, normal inspection Neurological exam: PRESENT: alert, awake, oriented to person, oriented to place, oriented to time Psychiatric exam: PRESENT: appropriate affect. ABSENT: agitated Focused psych exam: ABSENT: catatonic Skin exam: PRESENT: intact. ABSENT: dry All as above aside from that noted in the HPI and the following: Right lower extremity well splinted. Splint is clean dry and intact. Sensation is grossly intact to all toes. She is moving all toes. Capillary refill less than 2 seconds. Results Laboratory Results: 10/02/19 11:03 10/02/19 11:03 10/04/19 10/04/19 10/04/19 04:31 04:31 04:31 Triglycerides 63 Cholesterol 165.81 LDL Cholesterol Direct 101 H VLDL Cholesterol 13.0 HDL Cholesterol 46 TSH 2.02 Free T4 1.10 Free T3 pg/mL 2.27 L Impressions: Lower Extremity CT 10/02/19 00:00 IMPRESSION: 1. Mildly displaced and comminuted fractures of the lateral and posterior malleoli. 2. Ankle mortise disruption with medial tibiotalar subluxation. 3. Tiny ossific fragments in the region of the deltoid ligament. Ankle X-Ray 10/03/19 00:00 IMPRESSION: IMAGE(S) OBTAINED DURING PROCEDURE. Fluoroscopy 10/03/19 00:00 IMPRESSION: IMAGE(S) OBTAINED DURING PROCEDURE. Assessment & Plan - Diagnosis (1) Closed fracture dislocation of right ankle Qualifiers: Encounter type: initial encounter Qualified Code(s): S82.891A - Other fracture of right lower leg, initial encounter for closed fracture Is this a current diagnosis for this admission?: Yes Plan: She is currently orthopedically stable for discharge home -She wishes to return to work as soon as possible, I explained that this may be difficult but she can do it as soon as she can safely get to and from work as well as find work that allows for nonweightbearing of the right lower extremity. I explained to her that a rolling knee scooter will be her best option. I have written a prescription for this durable medical equipment. -I would like for physical therapy and Occupational Therapy to see her before discharge to do an evaluation and educate her in ways to get to work and perform her activities nonweightbearing right lower extremity -Prescriptions are provided in her chart -Aspirin for 6 weeks for DVT prophylaxis 325 mg/day -She is to follow-up with me in the clinic in 10 days. -She is to keep her splint clean dry and intact until that time, if anything happens in the meantime she is to call my office or present as soon as possible. - Time Time Spent with patient: 15-24 minutes
[2019-10-04] MEDS ORDERED: ASPIRIN 325 MG TABLET PO SCH (10:00)
[2019-10-04] MEDS: DOCUSATE SODIUM 100 MG CAPSULE PO SCH (11:21)
[2019-10-04] MEDS: MULTIVITAMIN TABLET PO SCH (11:21)
[2019-10-04] MEDS: PAROXETINE HCL 20 MG TABLET PO SCH (12:13)
[2019-10-04 12:24] VITALS: BP 133/67
--- NOTE | 2019-10-09 08:12 | PDOC DISCHARGE SUMMARY ---
Impression - Admit/DC Date/PCP Admission Date/Primary Care Provider: 10/02/19 16:00 [facility] Discharge Date: 10/03/19 - Discharge Diagnosis (1) Closed fracture dislocation of right ankle Is this a current diagnosis for this admission?: Yes - Assessment Summary: Mrs. 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 Her BMI is 45.5. After thorough work-up they were deemed appropriate for surgery. The patient elected to proceed with a right ankle open reduction internal fixation.. They were brought to the operating room on 10/03/19and underwent a right trimalleolar ankle open reduction and internal fixation. and tolerated procedure very well with out complication. They were then admitted to the hospital floor for postoperative medical management, monitoring, and pain control. On postoperative day #1 they were ambulating well with physical therapy, to the degree that they approved them for discharge home. They were discharged home on 10/04/2019. They had no acute events or complications over the course of their stay. All detailed instructions and prescriptions were provided to the patient prior to admission on the year prior office visit. - Additional Information Resuscitation Status: Full Code Discharge Diet: As Tolerated Discharge Activity: Activity As Tolerated, No Driving, No Lifting/Push/Pulling, No tub bath, Other Referrals: MARINA MCKEON JR, DO [ACTIVE PROVISIONAL STAFF] - 10/13/19 9:20 am Prescriptions: Aspirin [Aspirin 325 mg Tablet] 325 mg PO DAILY 42 Days #42 tablet Oxycodone HCl/Acetaminophen [Percocet 5-325 mg Tablet] 1 tab PO Q4HP PRN 10 Days #20 tablet PRN Reason: Home Medications: Multivitamin [Tab-A-Turner (Multiple Vitamin) Tablet] 1 tab PO DAILY 10/02/19 Pantoprazole Sodium [Protonix [address] Tablet] 40 mg PO Q6AM 10/02/19 Paroxetine HCl [Paxil 20 mg Tablet] 10 mg PO DAILY 10/02/19 Acetaminophen [Tylenol 325 mg Tablet] 650 mg PO Q8 tablet 10/03/19 Aspirin [Aspirin 325 mg Tablet] 325 mg PO DAILY 42 Days #42 tablet 10/03/19 Diphenhydramine HCl [Benadryl Inj 50 mg/1 ml Vial] 12.5 mg IV .WHILE IN PACU PRN vial 10/03/19 Docusate Sodium [Colace 100 mg Capsule] 100 mg PO BID capsule 10/03/19 Multivitamin [Tab-A-Turner (Multiple Vitamin) Tablet] 1 tab PO DAILY tablet 10/03/19 Oxycodone HCl/Acetaminophen [Percocet 5-325 mg Tablet] 1 tab PO Q4HP PRN 10 Days #20 tablet 10/03/19 History of Present Illiness History of Present Illness: Mrs. Conn is a very pleasant 49 year-old female who presented to the emergency department with acute right ankle pain after a fall, when trying to start [employer] at work for her job at [employer]. Her BMI is 45.5. They were evaluated in the emergency department and found to have a right ankle trimalleolar fracture dislocation equivalent. The emergency department physicians could not maintain reduction in a splint and so called me. I also performed a reduction manuever but she was found to be grossly unstable and splint would not be a reliable option for her for interval treatment. After thorough work-up they were deemed appropriate for surgery. The patient elected to proceed with a right ankle open reduction internal fixation. Due to OR availability, staffing and time of day, and difficulty of the case given the need for a posterior approach and her BMI, the patient was admitted treatment the following day. Physical Exam Vital Signs: Temp Pulse Resp BP Pulse Ox 98.2 F 62 16 133/67 H 97 10/04/19 12:18 10/04/19 12:18 10/04/19 12:18 10/04/19 12:18 10/04/19 12:18 Results Laboratory Results: WBC 4.8 10^3/uL (4.0-10.5) 10/02/19 11:03 RBC 4.85 10^6/uL (3.72-5.28) 10/02/19 11:03 Hgb 14.5 g/dL (12.0-15.5) 10/02/19 11:03 Hct 43.4 % (36.0-47.0) 10/02/19 11:03 MCV 89 fl (80-97) 10/02/19 11:03 MCH 29.9 pg (27.0-33.4) 10/02/19 11:03 MCHC 33.4 g/dL (32.0-36.0) 10/02/19 11:03 RDW 12.9 % (11.5-14.0) 10/02/19 11:03 Plt Count 153 10^3/uL (150-450) 10/02/19 11:03 Lymph % (Auto) 33.5 % (13-45) 10/02/19 11:03 Toombs % (Auto) 7.4 % (3-13) 10/02/19 11:03 Eos % (Auto) 2.4 % (0-6) 10/02/19 11:03 Baso % (Auto) 0.8 % (0-2) 10/02/19 11:03 Absolute Neuts (auto) 2.7 10^3/uL (1.7-8.2) 10/02/19 11:03 Absolute Lymphs (auto) 1.6 10^3/uL (0.5-4.7) 10/02/19 11:03 Absolute Monos (auto) 0.4 10^3/uL (0.1-1.4) 10/02/19 11:03 Absolute Eos (auto) 0.1 10^3/uL (0.0-0.6) 10/02/19 11:03 Absolute Basos (auto) 0.0 10^3/uL (0.0-0.2) 10/02/19 11:03 Seg Neutrophils % 55.9 % (42-78) 10/02/19 11:03 Sodium 141.1 mmol/L (137-145) 10/02/19 11:03 Potassium 3.9 mmol/L (3.6-5.0) 10/02/19 11:03 Chloride 107 mmol/L (98-107) 10/02/19 11:03 Carbon Dioxide 27 mmol/L (22-30) 10/02/19 11:03 Anion Gap 7 (5-19) 10/02/19 11:03 BUN 12 mg/dL (7-20) 10/02/19 11:03 Creatinine 0.77 mg/dL (0.52-1.25) 10/02/19 11:03 Est GFR ( Amer) > 60 (>60) 10/02/19 11:03 Est GFR (MDRD) Non-Af > 60 (>60) 10/02/19 11:03 Glucose 101 mg/dL (75-110) 10/02/19 11:03 Hemoglobin A1c % 5.4 % (4.7-6.0) 10/04/19 04:31 Calcium 9.5 mg/dL (8.4-10.2) 10/02/19 11:03 Triglycerides 63 mg/dL (<150) 10/04/19 04:31 Cholesterol 165.81 mg/dL (0-200) 10/04/19 04:31 LDL Cholesterol Direct 101 mg/dL (<100) H 10/04/19 04:31 VLDL Cholesterol 13.0 mg/dL (10-31) 10/04/19 04:31 HDL Cholesterol 46 mg/dL (>40) 10/04/19 04:31 TSH 2.02 uIU/mL (0.47-4.68) 10/04/19 04:31 Free T4 1.10 ng/dL (0.78-2.19) 10/04/19 04:31 Free T3 pg/mL 2.27 pg/mL (2.77-5.27) L 10/04/19 04:31 Impressions: Ankle X-Ray 10/02/19 00:00 IMPRESSION: Fracture dislocation of the ankle. Lower Extremity CT 10/02/19 00:00 IMPRESSION: 1. Mildly displaced and comminuted fractures of the lateral and posterior malleoli. 2. Ankle mortise disruption with medial tibiotalar subluxation. 3. Tiny ossific fragments in the region of the deltoid ligament. Ankle X-Ray 10/02/19 14:08 IMPRESSION: Successful closed reduction. Ankle X-Ray 10/03/19 00:00 IMPRESSION: Satisfactory postoperative right ankle as described. Ankle X-Ray 10/03/19 00:00 IMPRESSION: IMAGE(S) OBTAINED DURING PROCEDURE. Fluoroscopy 10/03/19 00:00 IMPRESSION: IMAGE(S) OBTAINED DURING PROCEDURE. Stroke Is this a Stroke Patient?: No Acute Heart Failure - Is this a Heart Failure Patient?: No
== END 2019-10-04 13:00 | disposition home or self-care (01) | DRG 493 ==
LOC: ER 10:35 → EH 16:00 → 5 21:53
PROVIDERS: ADMIT Orthopaedic Surgery; ATTEND Orthopaedic Surgery
PROC: 0QSG04Z Reposition Right Tibia with Internal Fixation Device, Open Approach (ICD-10-PCS; principal; 2019-10-03 09:15)
DX: S82.851A Displaced trimalleolar fracture of right lower leg, initial encounter for closed fracture (principal); Z68.42 Body mass index [BMI] 45.0-49.9, adult; E66.01 Morbid (severe) obesity due to excess calories; W18.39XA Other fall on same level, initial encounter; K21.9 Gastro-esophageal reflux disease without esophagitis; K44.9 Diaphragmatic hernia without obstruction or gangrene; Z91.09 Other allergy status, other than to drugs and biological substances; J45.20 Mild intermittent asthma, uncomplicated; Y93.51 Activity, roller skating (inline) and skateboarding; Y92.89 Other specified places as the place of occurrence of the external cause; Y99.0 Civilian activity done for income or pay
CPT/HCPCS: 01480; 36415; 80048; 80061; 83036; 84439; 84443; 84481; 85025; 96374; 99285; C1713; J0171; J0690; J1100; J2250; J2270; J2405; J2704; J3010; J3490; S0119